=== PATIENT | male | born 1980 | race Caucasian/White ===

== ENCOUNTER 2018-02-09 09:37 | Observation (INO) | payer MEDICAID, SELFPAY ==
[2018-02-09] VITALS (17 sets, daily range): BP systolic 120–153; BP diastolic 70–111; PULSE 65–100; RESP 15–18; TEMP 36.4–36.9; O2SAT 95–100; BMI 34.0; BMI 33.3; BMI 34.1
--- NOTE | 2018-02-09 09:56 | EKG12_ITS ---
Test Reason : SOB Blood Pressure : / mmHG Vent. Rate : 089 BPM Atrial Rate : 089 BPM P-R Int : 162 ms QRS Dur : 104 ms QT Int : 362 ms P-R-T Axes : 065 068 052 degrees QTc Int : 440 ms Normal sinus rhythm Normal ECG Confirmed by TERESA FRANCIS ([id number]), editor department ESTIVEN SALGUERO ([id number]) on 02/13/2018 4:03:12 PM Referred By: JASPREET Confirmed By:TERESA FRANCIS
--- NOTE | 2018-02-09 09:56 | RAD_ITS ---
STUDY: X-RAY CHEST REASON FOR EXAM: Male, 38 years old. Chest pain x2 days. TECHNIQUE: PA and lateral views. COMPARISON: 07/05/2014. FINDINGS: ET tube and NG tube have been removed. The lungs are clear and expanded. There is no demonstrated pleural abnormality. Normal size heart. Normal mediastinum and saray. Normal visualized pulmonary arteries. Normal visualized aortic arch and descending thoracic aorta. Normal visualized thoracic spine. Normal visualized ribs, clavicles, and shoulders. There is no demonstrated abnormality of the visualized soft tissue structures of the upper abdomen. RAD/Chest PA and Lateral IMPRESSION: 1. Normal x-ray examination of the chest. 2. Interval removal of ET tube and NG tube when compared to 07/05/2014. Electronically Signed: Yogesh Martinez MD at 10:46 EDT , Service support ,
[2018-02-09] MEDS: Aspirin 81 MG TAB.CHEW 324 MG PO (10:15)
[2018-02-09] MEDS: LORazepam 2 MG/ML Syringe 1 MG IV (10:15)
[2018-02-09 10:17] LABS: Absolute Lymphocyte Count 2.57 X10^3/ul (0.83-4.51); Absolute Neutrophil Count 5.5 X10^3/uL (2.0-7.7); Basophil# 0.04 X10^3/uL; Basophil% 0.4 % (0-1); Eosinophil# 0.23 X10^3/uL; Eosinophils% 2.6 % (0-5); Lymphocyte # 2.57 X10^3/ul (4.0); Lymphocyte % 28.6 % (19-41); Mean Corp Hgb Conc 35.7 g/gl (32-36); Mean Corpuscular Hgb 29.8 pg (27.0-32.0); Mean Corpuscular Volume 83.5 fL (80-94); Mean Platelet Vol. 9.9 fl (6.2-12.0); Monocyte# 0.65 X10^3/uL; Monocyte% 7.2 % (0-10); Neutrophil % 61.1 % (47-70); Platelet Count 312 K/mm3 (150-450); RBC Distribution Width CV 12.4 % (11.6-14.6); RBC Distribution Width SD 37.2 fl (35.1-43.9); Red Blood Count 5.03 M/mm3 (4.6-6.2)
[2018-02-09 10:23] LABS: POSITIVE COUNT NO; POSITIVE DIFFERENTIAL NO; POSITIVE MORPHOLOGY NO
[2018-02-09 10:24] LABS: Prothrombin Time (Protime)PT. 12.8 SECONDS (11.7-14.9)
[2018-02-09 10:34] LABS: Anion Gap 5 (5-15); BUN 12 mg/dL (7-18); BUN/Creat Ratio 12.3 RATIO (10-20); Chloride 107 mmol/L (98-107); Creatinine, Serum 0.97 mg/dL (0.70-1.30); EST Glomerular Filtration Rate 91 mL/min (>60); Est Glom Filt Rate - Afr Amer 110 mL/min (>60); Estimated Creatinine Clearance 107.82 ml/min; Glucose 94 mg/dL (74-106); Potassium 3.9 mmol/L (3.5-5.1); Sodium Level 139 mmol/L (136-145)
--- NOTE | 2018-02-09 10:42 | CT_ITS ---
STUDY: CTA CHEST REASON FOR EXAM: Male, 38 years old. Productive cough/chest pressure. History of hypertension, GERD, DB and cholecystectomy. RADIATION DOSAGE (If Supplied By Facility): CTDIvol = ( 14.78 ) mGy, DLP = ( 631.62 ) mGycm TECHNIQUE: The examination was performed with the intravenous administration of 100 ml of Isovue 370 contrast material. Post-processing of the angiographic images was performed, with multiplanar reformation. MIP reconstruction was not performed. Individualized dose optimization techniques were used for this CT. COMPARISON: 07/02/2015. FINDINGS: Normal enhancement of the main pulmonary artery and right and left pulmonary arteries. Normal enhancement of the bilateral peripheral pulmonary arteries. There is no demonstrated pulmonary embolism. Mild dilatation of the ascending aorta with a diameter of 3.7 cm versus 2.6 cm for the descending thoracic aorta. There is no demonstrated aortic dissection. Normal heart and pericardium. Normal mediastinum. Normal hilar regions. Normal visualized trachea and bronchi. The lungs are well expanded. No suspicious pulmonary nodules or infiltrates. Breathing motion artifacts in the lung bases. Normal pleura. Normal chest wall structures. Normal osseous structures. Normal visualized upper abdomen. CT/CTA Chest W/WO Contrast IMPRESSION: 1. Normal CTA chest examination, without a demonstrated pulmonary embolism or arterial dissection. 2. No significant interval changes when compared to 07/02/2015. COMMENT: Fatty liver was mentioned previously but there were streak artifacts in the previous study. There may be mild hepatic steatosis but it is certainly subtle. Electronically Signed: Yogesh Martinez MD at 11:34 EDT , Service support ,
--- NOTE | 2018-02-09 11:53 | ED.VISSUMM ---
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 He complains of pain on the left side of his chest which radiates under his axilla and into his neck. He also complains of associated anxiety. His pain is rated as severe currently. It is also worsened with deep inspiration. He complains of a productive cough. He complains of nausea without vomiting. He complains of chronic epigastric abdominal pain for months related H pylori. He also complains of lower back pain on the left side which she described as pinching. He does report a history of hypertension and hyperlipidemia as well as a history of unprovoked upper extremity DVT and supraventricular tachycardia. He reports a family history of coronary disease and states that his father of a heart attack in his 40s. He does admit to marijuana use but does not smoke tobacco. Physical Examination: Heart rate 100 blood pressure 147/102 Moist mucous membranes Heart regular rhythm tachycardia He has scattered expiratory wheezing no respiratory distress Abdomen soft Extremities nontender without edema Alert Test Results: EKG shows sinus rhythm at a rate of 89 with no acute ischemic changes. Laboratory studies are normal with a negative troponin. Chest x-ray is normal. CTA is normal. Emergency Department Course and Treatment: Patient was given aspirin on arrival. He also requested something for anxiety and was given IV Ativan. He was given sublingual nitroglycerin and reported significant improvement after 2. Given history of DVT and pleuritic component of pain a CTA of the chest was also obtained to rule out PE. This was normal. However I do still think he needs ruled out for cardiac ischemia given family history radiation of pain into the axilla and neck with improvement with nitroglycerin. I do feel he requires repeat enzymes and likely stress testing. He will be discussed with hospitalist and admitted. His CONSTANTINO score is 1 his heart score is 3. Treatment Plan: [] Disposition: Admit Impression: Chest pain Shortness of breath This note was generated with [employer] dictation software. It may contain incorrect words, spelling, and punctuation that were not noted in review of the chart prior to signing ED Disposition - Plan for ED Patient: Chief Complaint: Cough Referrals: Julita Wilhelm MD [Primary Care Provider] -
--- NOTE | 2018-02-09 11:56 | ED.DCSUM_ITS ---
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 He complains of pain on the left side of his chest which radiates under his axilla and into his neck. He also complains of associated anxiety. His pain is rated as severe currently. It is also worsened with deep inspiration. He complains of a productive cough. He complains of nausea without vomiting. He complains of chronic epigastric abdominal pain for months related H pylori. He also complains of lower back pain on the left side which she described as pinching. He does report a history of hypertension and hyperlipidemia as well as a history of unprovoked upper extremity DVT and supraventricular tachycardia. He reports a family history of coronary disease and states that his father of a heart attack in his 40s. He does admit to marijuana use but does not smoke tobacco. Physical Examination: Heart rate 100 blood pressure 147/102 Moist mucous membranes Heart regular rhythm tachycardia He has scattered expiratory wheezing no respiratory distress Abdomen soft Extremities nontender without edema Alert Test Results: EKG shows sinus rhythm at a rate of 89 with no acute ischemic changes. Laboratory studies are normal with a negative troponin. Chest x-ray is normal. CTA is normal. Emergency Department Course and Treatment: Patient was given aspirin on arrival. He also requested something for anxiety and was given IV Ativan. He was given sublingual nitroglycerin and reported significant improvement after 2. Given history of DVT and pleuritic component of pain a CTA of the chest was also obtained to rule out PE. This was normal. However I do still think he needs ruled out for cardiac ischemia given family history radiation of pain into the axilla and neck with improvement with nitroglycerin. I do feel he requires repeat enzymes and likely stress testing. He will be discussed with hospitalist and admitted. His CONSTANTINO score is 1 his heart score is 3. Treatment Plan: [] Disposition: Admit Impression: Chest pain Shortness of breath This note was generated with [employer] dictation software. It may contain incorrect words, spelling, and punctuation that were not noted in review of the chart prior to signing ED Disposition - Plan for ED Patient: Chief Complaint: Cough Referrals: Julita Wilhelm MD [Primary Care Provider] -
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
[2018-02-09 13:27] LABS: Amphetamine Urine VISTA NEGATIVE (<1000 ng/mL); Barbiturate Urine VISTA NEGATIVE (< 200 ng/mL); Benzodiazepine Urine VISTA NEGATIVE (< 200 ng/mL); Cocaine Urine VISTA NEGATIVE (< 300 ng/mL); Ecstacy Urine VISTA NEGATIVE (< 500 ng/mL); Methadone Urine VISTA NEGATIVE (< 300 ng/mL); PCP Urine VISTA NEGATIVE (< 25 ng/mL); THC Urine VISTA POSITIVE (< 50 ng/mL); Vista UDS pH Range 7
[2018-02-09 13:30] LABS: AST(SGOT) 22 U/L (15-37); Alanine Aminotransfer ALT/SGPT 39 U/L (16-61); Albumin, Serum 4.3 g/dL (3.2-5.0); Alkaline Phosphatase 72 U/L (45-117); Bilirubin, Direct 0.08 mg/dL (0.00-0.30); Globulin 3.2 g/dL (2.2-4.2); Lipase 182 U/L (73-393); Magnesium 2.1 mg/dL (1.6-2.6); Phosphorus 2.3 mg/dL (2.5-4.9); Protein, Total 7.5 g/dL (6.4-8.2)
[2018-02-09] MEDS: Lisinopril 5 MG Tablet PO (14:40)
[2018-02-09] MEDS: Acetaminophen 325 MG Tablet 650 MG PO (14:40)
--- NOTE | 2018-02-09 16:06 | RAD_ITS ---
STUDY: X-RAY - RIGHT HAND REASON FOR EXAM: Male, 38 years old. Fifth finger injury TECHNIQUE: 3 view(s) of the hand. COMPARISON: None. FINDINGS: Normal radiocarpal articulation. There is an old nonunited ulnar styloid process fracture. Normal visualized carpal bones. Normal carpal articulations Normal carpometacarpal articulation of the thumb. Normal second through fifth carpometacarpal joints. Normal metacarpi. Normal metacarpophalangeal joint of the thumb. Normal interphalangeal joint of the thumb. Normal proximal and distal phalanges of the thumb. Normal metacarpophalangeal joints of the second through fifth fingers. Normal proximal and distal interphalangeal joints of the second through fifth fingers. Normal phalanges of the second through fifth fingers. There is soft tissue swelling of the fifth PIP joint region. There is a tiny radiopacity adjacent to the base of the fifth middle phalanx which may represent cortical chip fracture or tiny radiopaque foreign body. RAD/Hand Min 3 Views IMPRESSION: Soft tissue swelling of the fifth PIP joint. Tiny radiopacity adjacent to the base of the fifth middle phalanx which may represent a tiny cortical chip fracture or radiopaque foreign body. There is an old nonunited ulnar styloid process fracture. Electronically Signed: Cuauhtemoc Mast MD at 17:19 EDT , Service support ,
--- NOTE | 2018-02-09 16:25 | CHAPLAIN ---
Type of Pastoral Visit _x__ Initial Visit ___ Follow-up Visit ___ On-call Visit ___ General Patient Visit ___ Spiritual Assessment ___ Family Conference ___ Bereavement ___ Rapid Response ___ Code Blue ___ Other (describe below) Pastoral Care Referral From _x__ Patient ___ Family ___ Nurse ___ Physician ___ Pipe Wrapping Machine Operator ___ Pourer Metal ___ Other (describe below) Sacrament/Intervention _x__ Active listening ___ Anointing ___ Taoist ___ Bereavement ___ Communion _x__ Vivienne exploration ___ _x__ Life review _x__ Prayer ___ Reconciliation ___ Sacrament of Sick _x__ Supportive presence ___ Wedding ___ Other (describe below) Pastoral Comments 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
[2018-02-09] MEDS: Gemfibrozil 600 MG Tablet PO (18:24)
[2018-02-09] MEDS: Thiamine Hydrochloride 100 MG Tablet PO (18:24)
[2018-02-09] MEDS: Ipratropium/Albuterol Sulfate 3 ML AMPUL.NEB INHALATION (18:47)
[2018-02-09] MEDS: Morphine 2 MG/ML Syringe IV (20:15)
--- NOTE | 2018-02-09 20:25 | EKG12_ITS ---
Test Reason : CP Blood Pressure : / mmHG Vent. Rate : 065 BPM Atrial Rate : 065 BPM P-R Int : 180 ms QRS Dur : 108 ms QT Int : 398 ms P-R-T Axes : 064 067 055 degrees QTc Int : 413 ms Normal sinus rhythm Septal infarct , age undetermined Abnormal ECG When compared with ECG of 09-FEB-2018 12:58, MANUAL COMPARISON REQUIRED, DATA IS UNCONFIRMED Confirmed by JOSE ALFREDO AHN, SABIHA ([id number]), associate editor ESTIVEN SALGUERO ([id number]) on 02/16/2018 3:49:27 PM Referred By: PALOMA Confirmed By:SABIHA VELIZ MD
[2018-02-09] MEDS: traZODone 50 MG Tablet PO (21:38)
[2018-02-09] MEDS: Famotidine 20 MG Tablet PO (21:38)
[2018-02-09] MEDS: HYDROcodone Bitartrate/Apap 5/325 Tablet PO (21:38)
[2018-02-09] MEDS: Na Biphos/Potassium Phosphate PACKET 1 PACKET PO (21:38)
[2018-02-09] MEDS: 0.9% Normal Saline 1,000 ML 100 ML IV (23:05)
--- NOTE | 2018-02-09 23:25 | CPS ---
pt says he'll sleep without CPAP tonight and use oxygen instead. He will have someone from bring him his home unit for tomorrow night.
[2018-02-10 02:57] VITALS: PULSE 59
[2018-02-10 03:18] VITALS: BP 129/69; PULSE 57; RESP 14; TEMP 36.4; O2SAT 100
--- NOTE | 2018-02-10 05:55 | EKG12_ITS ---
Test Reason : AM EKG Blood Pressure : / mmHG Vent. Rate : 056 BPM Atrial Rate : 056 BPM P-R Int : 146 ms QRS Dur : 104 ms QT Int : 422 ms P-R-T Axes : 023 075 060 degrees QTc Int : 407 ms Sinus bradycardia with sinus arrhythmia Otherwise normal ECG When compared with ECG of 09-FEB-2018 20:24, MANUAL COMPARISON REQUIRED, DATA IS UNCONFIRMED Confirmed by JOSE ALFREDO AHN, SABIHA ([id number]), fashion editor ESTIVEN SALGUERO ([id number]) on 02/16/2018 3:48:37 PM Referred By: PALOMA Confirmed By:SABIHA VELIZ MD
--- NOTE | 2018-02-10 05:55 | STEWCON_ITS ---
Stress Results Maximum Predicted HR: 180 bpm Target HR: 153 bpm % Maximum Predicted HR: 86 % DurationHeart Rate Stage (mm:ss) (bpm) BP I 3:00 11 0 170/72 II 6:00 13 1 186/82 III 9:00 15 3 192/80 IV 0:27 15 5 / RECOVERY 2:20 10 3 180/76 RECOVERY 6:40 93 126/80 Stress Duration: 27:27 mm:ss Maximum Stress HR: 155 bpm Baseline Echocardiogram Findings The estimated ejection fraction is 65 %. Stress Echo Wall motion Data Resting WMIntermediate WMStress WM Resting Wall Motion Wall Motion Stress No regional wall motion No regional wall motion abnormalities noted. abnormalities noted. EKG Data The baseline ECG demonstrates normal sinus rhythm with at rate of _ beats per minute. The patient exercised according to the regular Harsh protocol for a total duration of 9:26. The maximum heart rate attained was 166 beats per minute. This was 92% of maximum predicted heart rate. The patient exercised into stage 4 of the Harsh protocol. During stress, there were no ST or T wave changes noted to suggest ischemia. No arrhythmias noted. Interpretation Summary The study was technically difficult. Contrast injection was performed. The estimated ejection fraction is 65 %. Normal adequate treadmill echocardiogram. Negative for ischemia by EKG and echocardiographic criteria. Patient had baseline atypical sharp chest pain prior to testing, which did not worsen during testing. No associated EKG changes or echocardiographic changes with exercise. Average exercise capacity for age. Appropriate blood pressure response to exercise. Test terminated due to fatigue. Decreased sensitivity due to poor echo windows requiring Definity enhancement. Final LVEF of 75%. No complications. Ordering Physician: Yu López
[2018-02-10 05:59] VITALS: BP 143/80; PULSE 70; RESP 16; TEMP 36.4; O2SAT 96
[2018-02-10] MEDS: Na Biphos/Potassium Phosphate PACKET 1 PACKET PO (06:02)
[2018-02-10] MEDS: Acetaminophen 325 MG Tablet 650 MG PO (06:04)
[2018-02-10] MEDS: Aspirin 81 MG TAB.CHEW PO (06:04)
[2018-02-10] MEDS: LORazepam 1 MG Tablet 2 MG PO (06:04)
[2018-02-10] MEDS: Lisinopril 20 MG Tablet PO (06:07)
[2018-02-10 06:41] LABS: Hematocrit 42.4 % (40-54); Hemoglobin 14.6 g/dl (13.0-16.5); Mean Corp Hgb Conc 34.4 g/gl (32-36); Mean Corpuscular Hgb 29.4 pg (27.0-32.0); Mean Corpuscular Volume 85.3 fL (80-94); Mean Platelet Vol. 10.4 fl (6.2-12.0); Platelet Count 288 K/mm3 (150-450); RBC Distribution Width CV 12.6 % (11.6-14.6); RBC Distribution Width SD 38.6 fl (35.1-43.9); Red Blood Count 4.97 M/mm3 (4.6-6.2); White Blood Count 8.7 K/mm3 (4.4-11.0)
[2018-02-10 06:42] LABS: Scan Indicated on CBC? Y/N NO
[2018-02-10 06:44] LABS: Partial Thromboplast Time 30.3 Seconds (24.1-36.2); Prothrombin Time (Protime)PT. 13.3 SECONDS (11.7-14.9)
[2018-02-10 06:50] LABS: Anion Gap 9 (5-15); BUN 16 mg/dL (7-18); BUN/Creat Ratio 18.9 RATIO (10-20); Calcium,Total 8.3 mg/dL (8.5-10.1); Chloride 110 mmol/L (98-107); Cholesterol 187 mg/dL (200); Creatinine, Serum 0.84 mg/dL (0.70-1.30); EST Glomerular Filtration Rate 107 mL/min (>60); Est Glom Filt Rate - Afr Amer 129 mL/min (>60); Glucose 115 mg/dL (74-106); High Density Lipoprotein 30 mg/dL; Potassium 4.2 mmol/L (3.5-5.1); Sodium Level 142 mmol/L (136-145); Triglycerides 384 mg/dL; Very Low Density Lipoprotein 77 mg/dL (5-40)
[2018-02-10] MEDS: Gemfibrozil 600 MG Tablet PO (06:52)
[2018-02-10 07:00] VITALS: PULSE 62
[2018-02-10] MEDS: 0.9% Normal Saline 1,000 ML 100 ML IV (07:21)
--- NOTE | 2018-02-10 09:27 | CASEMGMT ---
Social Work Note SW in to see pt for emotional support. Pt unavailable to talk at present time. List of counseling services in [place] left in room and SW to return as time allows. Ashley Mcnamara, HEAD TELLER, ASSESSMENT CONSULTANT
[2018-02-10 09:30] VITALS: BP 151/90; PULSE 74; RESP 16; TEMP 36.6; O2SAT 98
[2018-02-10] MEDS: Thiamine Hydrochloride 100 MG Tablet PO (09:33)
[2018-02-10] MEDS: Sertraline 50 MG Tablet PO (09:33)
--- NOTE | 2018-02-10 09:34 | PCM.DC ---
- Discharge Diagnoses Current Active Problems: Current Active and Chronic Problems (1) Chest Pain, Non-Cardiac, Musculoskeletal (2) RUE Trauma (3) Recent Cough, Wheezing, ? Viral Syndrome versus underlying pulmonary disease (tobacco use prior) (4) History of Unprovoked RUE DVT and Hx Superficial VT with family history VTE also, unprovoked (5) Hypertension (6) Hyperlipidemia (7) Obesity (8) History of EtOH Abuse (9) Anxiety, Depression, PTSD and Insomnia, Untreated (10) GUSTAVO You will use the following diet at home:: Cardiac Your food should be the consistency of: Regular Your liquids should be the consistency of: Regular/Thin Discharge Activity: May not drive while taking narcotic pain medications., - - Avoid activity that strains the chest and LUE further until re-evaluation per your primary care physician and avoidance of aggressive R hand usage until re-evaluation per Orthopedic surgery. May resume sexual activity in: 10-14 days Weight Bearing Status: Weight bearing as tolerated Call your doctor if you observe: Fever of 101 or Higher, Inability to urinate, Inability to have a bowel movement, Shortness of breath, Dizziness, Fainting spells, Chest pain, Uncontrolled pain Instructions: ED Strain Chest Wall, ED Chest Pain NonCardiac, Taking BRANDON Inhibitors, Controlling High Blood Pressure, Low-Salt Choices, Eating Heart-Healthy Food: Using the DASH Plan Additional Instructions: The chest pain you experienced is not from your heart. The van driver helper you wore showed no problem with the rhythm of your heart. Additionally, the cardiac enzyme series performed remained normal. Also, your pain was reproducible on examination. Sometimes chest pain can come from a problem with the muscles or skeleton and/or associated with straining or doing some strenuous activity you do not normally perform. Generally Aleve or Motrin will help allieviate this discomfort if these medications are appropriate for you to take. Chest pain can also be associated with anxiety and with this you frequently have racing heart, trouble sleeping and irritability. It can also come from gastroesophageal reflux disease or heartburn. People who smoke experience increased heartburn because nicotine decreases the pressure in the lower esophageal sphincter and causes reflux. Please continue the mobic regimen, taking it with food and taking the famotidine while on the regimen until re-evaluation per Primary Care physician and Orthopedic surgery with alterations per their discretion. You may need outpatient physical therapy depending on your improvement. Allergies/Adverse Reactions: Allergies latex Allergy (Verified 02/09/18 09:39) Other meloxicam Allergy (Verified 02/09/18 09:39) Other Medications to take at Discharge Aspirin [Aspirin, Baby] 81 mg PO DAILY@0800 02/09/18 Albuterol IH (ProAir) [Proair Hfa] 1 - 2 puff INHALATION Q4H PRN PRN #1 inhaler 02/10/18 Famotidine [Pepcid] 20 mg PO BID #60 tab 02/10/18 Gemfibrozil [Lopid] 600 mg PO BIDAC #60 tab 02/10/18 Hydrocodone Bitart/Apap 5-325 [[place] 5/325] 1 - 2 tab PO Q6H PRN PRN 2 Days #20 tab 02/10/18 Lisinopril [Zestril] 20 mg PO DAILY #30 tab 02/10/18 Meloxicam [Mobic] 15 mg PO DAILY #14 tab 02/10/18 Multivitamins,Ther W-Minerals [Multivitamin With Minerals] 1 tab PO DAILYCM #30 tab 02/10/18 Sertraline HCl [Zoloft] 50 mg PO DAILY #30 tab 02/10/18 traZODone [Desyrel] 50 - 100 mg PO QHS #60 tab 02/10/18 The following prescriptions were given: Albuterol IH (ProAir) [Proair Hfa] 1 - 2 puff INHALATION Q4H PRN PRN #1 inhaler PRN Reason: dyspnea, wheezing Hydrocodone Bitart/Apap 5-325 [[place] 5/325] 1 - 2 tab PO Q6H PRN PRN 2 Days #20 tab PRN Reason: Moderate-severe pain Gemfibrozil [Lopid] 600 mg PO BIDAC #60 tab Lisinopril [Zestril] 20 mg PO DAILY #30 tab Meloxicam [Mobic] 15 mg PO DAILY #14 tab Multivitamins,Ther W-Minerals [Multivitamin With Minerals] 1 tab PO DAILYCM #30 tab Sertraline HCl [Zoloft] 50 mg PO DAILY #30 tab traZODone [Desyrel] 50 - 100 mg PO QHS #60 tab Famotidine [Pepcid] 20 mg PO BID #60 tab Primary Care Physician: Julita Wilhelm MD [Primary Care Provider] - Please follow up with your Primary Care Physician in: Follow-up within 3-5 days to review admit. Please Follow Up With: Chavez Lyn DO When: Follow-up to evaluate R hand, s/p trauma. Proposed Discharge Date: 02/10/18
[2018-02-10] MEDS: Famotidine 20 MG Tablet PO (09:38)
[2018-02-10] MEDS: Folic Acid 1 MG Tablet PO (09:38)
[2018-02-10] MEDS: Multivitamins,Ther W-Minerals Tablet 1 TABLET PO (09:38)
[2018-02-10] MEDS: Ketorolac 30 MG/ML Syringe IV (09:38)
--- NOTE | 2018-02-10 09:42 | DCINST_ITS ---
- Discharge Diagnoses Current Active Problems: Current Active and Chronic Problems (1) Chest Pain, Non-Cardiac, Musculoskeletal (2) RUE Trauma (3) Recent Cough, Wheezing, ? Viral Syndrome versus underlying pulmonary disease (tobacco use prior) (4) History of Unprovoked RUE DVT and Hx Superficial VT with family history VTE also, unprovoked (5) Hypertension (6) Hyperlipidemia (7) Obesity (8) History of EtOH Abuse (9) Anxiety, Depression, PTSD and Insomnia, Untreated (10) GUSTAVO You will use the following diet at home:: Cardiac Your food should be the consistency of: Regular Your liquids should be the consistency of: Regular/Thin Discharge Activity: May not drive while taking narcotic pain medications., - - Avoid activity that strains the chest and LUE further until re-evaluation per your primary care physician and avoidance of aggressive R hand usage until re- evaluation per Orthopedic surgery. May resume sexual activity in: 10-14 days Weight Bearing Status: Weight bearing as tolerated Call your doctor if you observe: Fever of 101 or Higher, Inability to urinate, Inability to have a bowel movement, Shortness of breath, Dizziness, Fainting spells, Chest pain, Uncontrolled pain Instructions: ED Strain Chest Wall, ED Chest Pain NonCardiac, Taking BRANDON Inhibitors, Controlling High Blood Pressure, Low-Salt Choices, Eating Heart- Healthy Food: Using the DASH Plan Additional Instructions: The chest pain you experienced is not from your heart. The rn cardiac you wore showed no problem with the rhythm of your heart. Additionally, the cardiac enzyme series performed remained normal. Also, your pain was reproducible on examination. Sometimes chest pain can come from a problem with the muscles or skeleton and/or associated with straining or doing some strenuous activity you do not normally perform. Generally Aleve or Motrin will help allieviate this discomfort if these medications are appropriate for you to take. Chest pain can also be associated with anxiety and with this you frequently have racing heart, trouble sleeping and irritability. It can also come from gastroesophageal reflux disease or heartburn. People who smoke experience increased heartburn because nicotine decreases the pressure in the lower esophageal sphincter and causes reflux. Please continue the mobic regimen , taking it with food and taking the famotidine while on the regimen until re- evaluation per Primary Care physician and Orthopedic surgery with alterations per their discretion. You may need outpatient physical therapy depending on your improvement. Allergies/Adverse Reactions: Allergies latex Allergy (Verified 02/09/18 09:39) Other meloxicam Allergy (Verified 02/09/18 09:39) Other Medications to take at Discharge Aspirin [Aspirin, Baby] 81 mg PO DAILY@0800 02/09/18 Albuterol IH (ProAir) [Proair Hfa] 1 - 2 puff INHALATION Q4H PRN PRN #1 inhaler 02/10/18 Famotidine [Pepcid] 20 mg PO BID #60 tab 02/10/18 Gemfibrozil [Lopid] 600 mg PO BIDAC #60 tab 02/10/18 Hydrocodone Bitart/Apap 5-325 [[place] 5/325] 1 - 2 tab PO Q6H PRN PRN 2 Days #20 tab 02/10/18 Lisinopril [Zestril] 20 mg PO DAILY #30 tab 02/10/18 Meloxicam [Mobic] 15 mg PO DAILY #14 tab 02/10/18 Multivitamins,Ther W-Minerals [Multivitamin With Minerals] 1 tab PO DAILYCM #30 tab 02/10/18 Sertraline HCl [Zoloft] 50 mg PO DAILY #30 tab 02/10/18 traZODone [Desyrel] 50 - 100 mg PO QHS #60 tab 02/10/18 The following prescriptions were given: Albuterol IH (ProAir) [Proair Hfa] 1 - 2 puff INHALATION Q4H PRN PRN #1 inhaler PRN Reason: dyspnea, wheezing Hydrocodone Bitart/Apap 5-325 [[place] 5/325] 1 - 2 tab PO Q6H PRN PRN 2 Days #20 tab PRN Reason: Moderate-severe pain Gemfibrozil [Lopid] 600 mg PO BIDAC #60 tab Lisinopril [Zestril] 20 mg PO DAILY #30 tab Meloxicam [Mobic] 15 mg PO DAILY #14 tab Multivitamins,Ther W-Minerals [Multivitamin With Minerals] 1 tab PO DAILYCM #30 tab Sertraline HCl [Zoloft] 50 mg PO DAILY #30 tab traZODone [Desyrel] 50 - 100 mg PO QHS #60 tab Famotidine [Pepcid] 20 mg PO BID #60 tab Primary Care Physician: Julita Wilhelm MD [Primary Care Provider] - Please follow up with your Primary Care Physician in: Follow-up within 3-5 days to review admit. Please Follow Up With: Chavez Lyn DO When: Follow-up to evaluate R hand, s/p trauma. Proposed Discharge Date: 02/10/18
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
[2018-02-10 11:00] VITALS: PULSE 69; PULSE 82
--- NOTE | 2018-02-10 11:14 | ECHOCS_ITS ---
Reason For Study: Chest Pain Procedure This was a 2D Doppler, Color Flow transthoracic echocardiogram. Exam performed in department. Left Ventricle Normal size and thickness. The estimated ejection fraction is 65 %. Normal diastology for age. Right Ventricle Normal size and thickness. Normal systolic function. Atria Normal left atrium. Normal right atrium. Normal atrial septum. Mitral Valve The mitral valve is structurally normal. No prolapse or stenosis seen. Tricuspid Valve Normal tricuspid valve. Unable to estimate RV systolic pressure/pulmonary artery pressure due to technically difficult study. Aortic Valve Normal aortic valve. Trisinus/trileaflet aortic valve. Pulmonic Valve Normal pulmonic valve. Trivial eccentric pulmonic valve insufficiency. Great Vessels Normal aortic root. Normal arch. Normal inferior vena cava. Inferior vena cava collapse with sniff. Pericardium/Pleural No pericardial effusion. MMode/2D Measurements & Calculations LVIDd: 5.1 cm IVSd: 1.1 cm Ao root diam: 3.3 cm LVIDs: 3.4 cm LVPWd: 1.0 cm LA dimension: 3.2 cm RVDd: 4.0 cm FS: 32.6 % LAV(MOD-bp): 33.8 ml LA A4 area: 10.5 cm2 RA A4 area: 12.1 cm2 LAV(MOD-bp) Indexed: 14.9 ml/m2 LAV(MOD-sp2): 43.4 ml LAV(MOD-sp4): 21.7 ml Doppler Measurements & Calculations MV E max momo: 84.4 cm/sec Lat Peak E' Momo: 15.5 cm/sec Med Peak E' Momo: 10.4 cm/sec MV A max momo: 45.1 cm/sec E/E' lat: 5.4 E/E' med: 8.1 MV E/A: 1.9 Ao V2 max: 127.5 cm/sec LV V1 max: 124.6 cm/sec PA V2 max: 85.7 cm/sec Ao max P.5 mmHg LV V1 max P.2 mmHg Ao V2 mean: 86.4 cm/sec Ao mean P.4 mmHg Ao V2 VTI: 26.4 cm Interpretation Summary The estimated ejection fraction is 65 %. Normal diastology for age. Unable to estimate RV systolic pressure/pulmonary artery pressure due to technically difficult study. There is no comparison study available. This was essentially a normal study. Ordering Physician: Jeramie Ruelas Referring Physician: Julita Wilhelm Performed By: Radha Love, HUNTER, RVT
[2018-02-12 14:15] LABS: Dilute Russell Viper Venom 44.6 sec (0.0-47.0)
[2018-02-15 14:08] LABS: Protein C Antigen 95 % (60-150); Protein C, Functional 116 % (73-180)
[2018-02-16 12:16] LABS: Anti-Cardiolipin Ab, IgG, Qn < 9 GPL U/mL (0-14); Anti-Cardiolipin Ab, IgM, Qn < 9 MPL U/mL (0-12); Anti-Thrombin 3 AG, Immunol 102 % (72-124); Antithrombin 3 Function 107 % (75-135); Beta-2-Glycoprotein I IgA <9 (0-25); Beta-2-Glycoprotein I IgG <9 (0-20); Beta-2-Glycoprotein I IgM <9 (0-32)
== END 2018-02-10 09:40 | disposition home or self-care (01) ==
LOC: ED 10:21 → PCU 12:35
PROVIDERS: Admitting Provider Family Medicine; Emergency Provider Emergency Medicine; Family Provider Internal Medicine; PCP Internal Medicine; Visit Provider Family Medicine
DX: R07.89 Other chest pain (principal); G47.33 Obstructive sleep apnea (adult) (pediatric); E78.5 Hyperlipidemia, unspecified; I10 Essential (primary) hypertension; Z86.718 Personal history of other venous thrombosis and embolism; K21.9 Gastro-esophageal reflux disease without esophagitis; E66.9 Obesity, unspecified; Z68.33 Body mass index [BMI] 33.0-33.9, adult; Z71.3 Dietary counseling and surveillance; Z79.82 Long term (current) use of aspirin; F17.220 Nicotine dependence, chewing tobacco, uncomplicated; S69.91XD Unspecified injury of right wrist, hand and finger(s), subsequent encounter; X58.XXXD Exposure to other specified factors, subsequent encounter
CPT/HCPCS: 36415; 71046; 71275; 73130; 80048; 80061; 80076; 80307; 80320; 81240; 81241; 83690; 83735; 84100; 84484; 85025; 85027; 85300; 85301; 85302; 85303; 85610; 85613; 85730; 86146; 86147; 87633; 93005; 93017; 93306; 93350; 94640; 96361; 96374; 96375; 96376; 97802; 99218; 99283; J7030; Q9957; Q9967; A4216; C8928; G0378; G0480

== ENCOUNTER 2018-04-14 17:37 | Emergency (ER) | payer SELFPAY ==
[2018-04-14 17:38] VITALS: BP 142/83; PULSE 80; RESP 18; TEMP 36.7; O2SAT 99; BMI 29.0
--- NOTE | 2018-04-14 18:21 | RAD_ITS ---
STUDY: X-RAY - RIGHT FOOT CLINICAL: Male, 38 years old. Right-sided lateral foot pain after recent trauma. TECHNIQUE: 3 view(s) of the foot. COMPARISON: None. FINDINGS: Normal talus, calcaneus, and tarsal bones. Intertarsal articulations are within normal limits. There appears to be a stress fracture of the proximal fifth metatarsal. The metatarsals otherwise are within normal limits. Normal metatarsophalangeal joint of the great toe. Normal tibial and fibular sesamoid bones. Normal interphalangeal joint of the great toe. Normal phalanges of the great toe. Normal second through fifth metatarsophalangeal joints. Normal interphalangeal joints and phalanges of the lesser toes. Soft tissue swelling of the lateral foot. RAD/Foot min 3 Views IMPRESSION: Stress fracture of the proximal fifth metatarsal. Electronically Signed: Elissa Govea MD at 19:36 EDT , Service support ,
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
--- NOTE | 2018-04-14 20:08 | ED.DEP ---
ED Disposition - Plan for ED Patient: Chief Complaint: Lower Extremity Injury Instructions: ED Fx Foot Prescriptions: Hydrocodone/Acetaminophen [[place] 5-325 Tablet] 1 - 2 ea PO 4X/DAY PRN PRN 5 Days #20 tab PRN Reason: Pain Referrals: Yousuf Gillespie MD [Primary Care Provider] - Madeline Weiss DPM [STAFF PHYSICIAN] -
[2018-04-14 20:24] VITALS: RESP 18
== END 2018-04-14 20:24 | disposition home or self-care (01) ==
LOC: ED 19:30
PROVIDERS: Emergency Provider Emergency Medicine; Family Provider Family Medicine; PCP Family Medicine
DX: M84.374A Stress fracture, right foot, initial encounter for fracture (principal); W22.09XA Striking against other stationary object, initial encounter; Y93.9 Activity, unspecified; Y92.9 Unspecified place or not applicable; F12.90 Cannabis use, unspecified, uncomplicated
CPT/HCPCS: 29515; 73630; 99283

== ENCOUNTER 2018-04-17 14:08 | Emergency (ER) | payer MEDICAID, SELFPAY ==
[2018-04-17 14:08] VITALS: BP 129/79; PULSE 72; RESP 18; TEMP 36.9; O2SAT 99; BMI 29.5
--- NOTE | 2018-04-17 14:33 | VDLE_ITS ---
Reason For Study: LEG PAIN RIGHT GSV is normal. CFV is compressible, spontaneous, phasic, competent and demonstrates normal augmentation. FV is compressible, spontaneous, phasic, competent and demonstrates normal augmentation. POP V is compressible, spontaneous, phasic, competent and demonstrates normal augmentation. T/P Trunk is compressible. PTV is compressible. RT PerV is compressible. Procedure Exam performed in department. A preliminary report was called and/or faxed to Dr. Orantes. Interpretation Summary There is no evidence of right lower extremity deep vein thrombosis. Right greater saphenous vein appears patent and compressible segmentally. Ordering Physician: Pieter Orantes Referring Physician: MD Verna Yousuf Performed By: Carla Ernst RVT
--- NOTE | 2018-04-17 15:41 | ED.VISSUMM ---
- ER Visit Summary Date of Service: 04/17/18 Chief Complaint: Right calf pain History of Present Illness: The patient is a [address] Gillespie. He states that he broke his right foot approximately 10 days ago. He was scheduled to see Dr. Infante in follow-up. However, he began having right calf pain and has a history of DVT. He was sent to the emergency department for evaluation. Patient reports that he has a sharp, burning pain is 1010 at worst 1-10 currently. Is worsened by nothing relieved by nothing. He denies any paresthesias. Physical Examination: Vitals: Stable. Afebrile. General: Well-nourished and well-developed. Head: Normocephalic atraumatic. Neck: Supple, no lymphadenopathy. No JVD. Nontender. Cardiovascular: Regular rate and rhythm. No murmurs. Respiratory: No respiratory distress. Clear to auscultation bilaterally. Abdominal: Soft, nontender, nondistended, normal bowel sounds. No guarding, rebound, or peritoneal signs. Back: Nontender. Extremities: Moderate tenderness palpation over the lateral surface of his right foot. Minimal soft tissue swelling. No contusion. He has a 2+ dorsalis pedis pulse. He has mild tenderness palpation over his right calf. There is no edema. Skin: Normal color, no rash. Neurologic: Alert and oriented ?3. Cranial nerves II through XII are intact. Normal strength and sensation. Psych: Normal affect. Test Results: Right lower extreme a Doppler was negative. Emergency Department Course and Treatment: Patient is resting comfortably. Treatment Plan: Patient was discussed with Dr. Mast. He will be discharged instructions to follow-up Dr. Weiss on as previously scheduled. Return to the emergency department for any worsening symptoms. Disposition: To home in improved and stable condition. Impression: 1. Right fifth metatarsal fracture. 2. Right calf pain. This note was generated with Gimah[employer] dictation software. It may contain incorrect words, spelling, and punctuation that were not noted in review of the chart prior to signing ED Disposition - Plan for ED Patient: Chief Complaint: Lower Extremity Injury Instructions: ED Fx Foot Referrals: Madeline Weiss DPM [STAFF PHYSICIAN] - Keep Jay appointment
== END 2018-04-17 15:50 | disposition home or self-care (01) ==
PROVIDERS: Emergency Provider Emergency Medicine; Family Provider Family Medicine; PCP Family Medicine
DX: M79.661 Pain in right lower leg (principal); S92.351A Displaced fracture of fifth metatarsal bone, right foot, initial encounter for closed fracture; X58.XXXA Exposure to other specified factors, initial encounter; J45.909 Unspecified asthma, uncomplicated; Z86.718 Personal history of other venous thrombosis and embolism; Z79.82 Long term (current) use of aspirin
CPT/HCPCS: 93971; 99282

== ENCOUNTER → 2018-04-19 16:20 | Outpatient (CLI) | payer MEDICAID, SELFPAY | PROVIDERS: Family Provider Family Medicine; PCP Family Medicine; Visit Provider Podiatrist | DX: S92.353A Displaced fracture of fifth metatarsal bone, unspecified foot, initial encounter for closed fracture (principal); E55.9 Vitamin D deficiency, unspecified | CPT/HCPCS: 36415; 82306 ==

== ENCOUNTER 2018-04-26 21:51 | Emergency (ER) | payer MEDICAID, SELFPAY ==
[2018-04-26 21:52] VITALS: BP 152/97; PULSE 98; RESP 18; TEMP 35.9; O2SAT 97; BMI 29.5
--- NOTE | 2018-04-26 21:58 | ED.RN ---
DIRECTOR EMPLOYEE COMMUNICATIONS CALLED FOR EKG, PULLED OLD EKG'S FOR
--- NOTE | 2018-04-26 22:16 | EKG12_ITS ---
Test Reason : CHEST PAIN Blood Pressure : / mmHG Vent. Rate : 077 BPM Atrial Rate : 077 BPM P-R Int : 186 ms QRS Dur : 104 ms QT Int : 368 ms P-R-T Axes : 054 065 048 degrees QTc Int : 416 ms Normal sinus rhythm Normal ECG Confirmed by JOSE ALFREDO AHN, SABIHA ([id number]), editor news ESTIVEN SALGUERO ([id number]) on 05/01/2018 2:15:07 PM Referred By: Madeline Weiss Confirmed By:SABIHA VELIZ MD
[2018-04-26 22:20] VITALS: BP 142/93; PULSE 94; RESP 15; O2SAT 94
--- NOTE | 2018-04-26 22:20 | RAD_ITS ---
STUDY: X-RAY CHEST REASON FOR EXAM: Male, 38 years old. Chest pain. TECHNIQUE: Single AP portable view of the chest. COMPARISON: Prior comparison studies are not available for review at this time. FINDINGS: The lungs are clear and expanded. There is no demonstrated pleural abnormality. Normal size heart. Normal mediastinum and saray. Normal visualized pulmonary arteries. Normal visualized aortic arch and descending thoracic aorta. Normal visualized thoracic spine. Normal visualized ribs, clavicles, and shoulders. There is no demonstrated abnormality of the visualized soft tissue structures of the upper abdomen. RAD/Chest 1 View (Portable) IMPRESSION: No active pulmonary disease. Electronically Signed: Jason Hurtado MD at 22:40 EDT Tel , Service support ,
[2018-04-26] MEDS: Aspirin 81 MG TAB.CHEW 324 MG PO (22:34)
[2018-04-26] MEDS: 0.9% Normal Saline 1,000 ML 150 ML IV (22:35)
[2018-04-26 22:41] LABS: Absolute Lymphocyte Count 3.17 X10^3/ul (0.83-4.51); Absolute Neutrophil Count 5.6 X10^3/uL (2.0-7.7); Basophil# 0.07 X10^3/uL; Basophil% 0.7 % (0-1); Eosinophil# 0.37 X10^3/uL; Eosinophils% 3.8 % (0-5); Hematocrit 42.5 % (40-54); Hemoglobin 14.6 g/dl (13.0-16.5); Lymphocyte # 3.17 X10^3/ul (4.0); Lymphocyte % 32.2 % (19-41); Mean Corp Hgb Conc 34.4 g/gl (32-36); Mean Corpuscular Hgb 29.3 pg (27.0-32.0); Mean Corpuscular Volume 85.3 fL (80-94); Mean Platelet Vol. 10.1 fl (6.2-12.0); Monocyte# 0.69 X10^3/uL; Neutrophil # 5.55 X10^3/uL (2.7-7.7); Neutrophil % 56.2 % (47-70); Platelet Count 290 K/mm3 (150-450); RBC Distribution Width CV 12.5 % (11.6-14.6); RBC Distribution Width SD 38.7 fl (35.1-43.9); Red Blood Count 4.98 M/mm3 (4.6-6.2); White Blood Count 9.9 K/mm3 (4.4-11.0)
[2018-04-26 22:42] LABS: POSITIVE COUNT NO; POSITIVE DIFFERENTIAL NO; POSITIVE MORPHOLOGY NO
[2018-04-26 22:44] LABS: Anion Gap 8 (5-15); BUN 16 mg/dL (7-18); BUN/Creat Ratio 17.6 RATIO (10-20); Calcium,Total 9.3 mg/dL (8.5-10.1); Chloride 105 mmol/L (98-107); Creatinine, Serum 0.91 mg/dL (0.70-1.30); EST Glomerular Filtration Rate 98 mL/min (>60); Est Glom Filt Rate - Afr Amer 118 mL/min (>60); Estimated Creatinine Clearance 114.93 ml/min; Glucose 84 mg/dL (74-106); Sodium Level 140 mmol/L (136-145)
[2018-04-26 22:49] LABS: D-Dimer Quantitative (DVT/PE) 0.38 FEU/ug/m (0.27-0.49)
--- NOTE | 2018-04-26 23:05 | ED.VISSUMM ---
- ER Visit Summary Date of Service: 04/26/18 Chief Complaint: [Chest pain] History of Present Illness: The patient is a 38 M [presents the emergency department complaint of chest discomfort that started this evening. Patient states that he was at the store walking around when he developed sudden onset of a sharp stabbing very localized pain in his left chest that lasted about 20-30 seconds and then resolved. Minutes later he had a second episode and he became diaphoretic. Patient denied any shortness of breath with it and he denied any radiation of the pain. Patient is never had pain quite like this before. Patient currently wearing a cast on his right leg for foot fracture that he sustained a couple weeks ago. Patient tells me that he does have a history of high cholesterol, hypertension, history of DVT, and history of a foot fracture. Patient states that he thinks his dad of a blood clot or possibly a heart attack in his 40s.] Physical Examination: [HEENT-PERRLA, EOMI. Cranial nerves II through XII grossly intact. TMs clear. Mucous membranes moist. No adenopathy. Cardiovascular-regular rate and rhythm without murmur or ectopy Lungs-clear to auscultation, chest wall stable without crepitus or subcu emphysema Abdomen-normoactive bowel sounds, soft, nontender, no rebound or rigidity, no peritoneal signs. Extremities-intact ?4, normal range of motion, normal pulses. Patient does have a short leg cast on the right leg and foot. Normal cap refill. No significant edema noted. Test Results: [EKG obtained on arrival shows sinus rhythm with a ventricular rate of 77 bpm with no acute ST segment changes. CBC with differential was normal. Chemistries were normal. Troponin was less than 0.015. D-dimer is normal at 0.38. Chest x-ray was normal.] Emergency Department Course and Treatment: [Patient received aspirin on arrival the emergency department] Treatment Plan: [Patient will be discharged home as at this point his chest pain is very atypical and I do not believe this to be cardiac in origin.] Disposition: [Discharged home stable condition] Impression: [Atypical chest pain-resolved] This note was generated with K[employer] dictation software. It may contain incorrect words, spelling, and punctuation that were not noted in review of the chart prior to signing ED Disposition - Plan for ED Patient: Chief Complaint: Chest Pain Referrals: Yousuf Gillespie MD [Primary Care Provider] -
--- NOTE | 2018-04-26 23:09 | ED.DCSUM_ITS ---
- ER Visit Summary Date of Service: 04/26/18 Chief Complaint: [Chest pain] History of Present Illness: The patient is a 38 M [presents the emergency department complaint of chest discomfort that started this evening. Patient states that he was at the store walking around when he developed sudden onset of a sharp stabbing very localized pain in his left chest that lasted about 20- 30 seconds and then resolved. Minutes later he had a second episode and he became diaphoretic. Patient denied any shortness of breath with it and he denied any radiation of the pain. Patient is never had pain quite like this before. Patient currently wearing a cast on his right leg for foot fracture that he sustained a couple weeks ago. Patient tells me that he does have a history of high cholesterol, hypertension, history of DVT, and history of a foot fracture. Patient states that he thinks his dad of a blood clot or possibly a heart attack in his 40s.] Physical Examination: [HEENT-PERRLA, EOMI. Cranial nerves II through XII grossly intact. TMs clear. Mucous membranes moist. No adenopathy. Cardiovascular-regular rate and rhythm without murmur or ectopy Lungs-clear to auscultation, chest wall stable without crepitus or subcu emphysema Abdomen-normoactive bowel sounds, soft, nontender, no rebound or rigidity, no peritoneal signs. Extremities-intact ?4, normal range of motion, normal pulses. Patient does have a short leg cast on the right leg and foot. Normal cap refill. No significant edema noted. Test Results: [EKG obtained on arrival shows sinus rhythm with a ventricular rate of 77 bpm with no acute ST segment changes. CBC with differential was normal. Chemistries were normal. Troponin was less than 0.015. D-dimer is normal at 0.38. Chest x-ray was normal.] Emergency Department Course and Treatment: [Patient received aspirin on arrival the emergency department] Treatment Plan: [Patient will be discharged home as at this point his chest pain is very atypical and I do not believe this to be cardiac in origin.] Disposition: [Discharged home stable condition] Impression: [Atypical chest pain-resolved] This note was generated with Graze dictation software. It may contain incorrect words, spelling, and punctuation that were not noted in review of the chart prior to signing ED Disposition - Plan for ED Patient: Chief Complaint: Chest Pain Referrals: Yousuf Gillespie MD [Primary Care Provider] -
--- NOTE | 2018-04-26 23:09 | ED.DEP ---
ED Disposition - Plan for ED Patient: Chief Complaint: Chest Pain Instructions: ED Chest Pain Atypical Unkn Cause Referrals: Yousuf Gillespie MD [Primary Care Provider] - 3-5 Days
[2018-04-26 23:23] VITALS: BP 133/95; PULSE 79; RESP 19; O2SAT 96
== END 2018-04-26 23:24 | disposition home or self-care (01) ==
PROVIDERS: Emergency Provider Emergency Medicine; Family Provider Family Medicine; PCP Family Medicine
DX: R07.89 Other chest pain (principal); E78.00 Pure hypercholesterolemia, unspecified; I10 Essential (primary) hypertension; F12.90 Cannabis use, unspecified, uncomplicated; Z86.718 Personal history of other venous thrombosis and embolism; Z79.82 Long term (current) use of aspirin; Z79.899 Other long term (current) drug therapy; Z72.0 Tobacco use
CPT/HCPCS: 71045; 80048; 84484; 85025; 85379; 93005; 96360; 99285; J7030; A4216

== ENCOUNTER 2018-05-11 05:40 | Emergency (ER) | payer MEDICAID, SELFPAY ==
[2018-05-11 05:41] VITALS: BP 152/106; PULSE 96; RESP 20; TEMP 36.8; O2SAT 100; BMI 33.5
--- NOTE | 2018-05-11 05:45 | ED.VIS.GEN ---
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 This morning he got up and prior to putting his boot on, put his left foot down and it slipped out from underneath of him, and in falling and catching himself, landed with his right foot plantar surface down but very hard on a hard floor, significantly intensifying pain in the area of his fracture. He has been in so much pain that he was vomiting and felt unsafe to drive here so he presents by EMS. He has taken nothing for the pain so far. - Past Medical History (1) Anxiety and depression Status: Chronic (2) GERD (gastroesophageal reflux disease) Status: Chronic (3) HLD (hyperlipidemia) Status: Chronic (4) HTN (hypertension) Status: Chronic (5) Insomnia Status: Chronic (6) Migraine Status: Chronic (7) GUSTAVO (obstructive sleep apnea) Status: Chronic (8) PTSD (post-traumatic stress disorder) Status: Chronic Past Medical History - Allergies and Home Meds Allergies/Adverse Reactions: Allergies latex Allergy (Verified 05/11/18 05:41) Other meloxicam Allergy (Verified 05/11/18 05:41) Other Primary Care Physician: Madeline Weiss DPM [STAFF PHYSICIAN] - (call for appt this or early next week) Yousuf Gillespie MD [Primary Care Provider] - Surgical History: - - Left hip surgery with pin x 2 secondary to defect, cholecystectomy. Smoking Status: Never smoker - Family History Maternal Family History: Reports: - - Patient notes a maternal family history of heart disease. Paternal Family History: Reports: - - Patient notes a paternal family history of [place], heart disease in his father with secondary to fatal [place] at age 40 in addition to blood clots in his father including PE. Review of Systems General: Denies: Chills, Fever Gastrointestinal: Reports: Nausea, Vomiting. Denies: Abdominal pain Musculoskeletal: Reports: Extremity Pain - Right foot only Neurological: Reports: Parasthesia. Denies: Headache, Weakness Physical Exam Vital Signs/Narrative: Vital Signs Temp Pulse Resp BP Pulse Ox 05/11/18 05:41 98.2 F 96 20 H 152/106 H 100 Inital Vital Signs reviewed: Yes General: Well nourished, Well developed Head: Normocephalic, Atraumatic Respiratory: No distress Extremities: Tenderness - very tender right lateral midfoot; limited due to amount of pain. no skin openings or bleeding. toes NT. ankle malleoli NT. Skin: Normal color, No rash Neurological: Alert, Oriented x3, Cranial nerves II-XII grossly intact, Normal Strength, Parasthesia - distallly all 4 exts Psychological: - - anxious Diagnostic/Tx/Re-eval Clinical Impression(s) from Imaging Studies Foot X-Ray 05/11/18 05:50 IMPRESSION: Increasing conspicuity of previously described fifth metatarsal fracture. No new osseous injuries are seen. Electronically Signed: Eulogio Pickett MD at 6:20 EDT Tel , Service support , - Medical Decision Making X-rays were repeated, his last x-rays were almost 1 month ago, showing the initial injury. It was read then as a stress fracture, although by mechanism he did have an acute injury. Now the fracture line extends through the entire fifth metatarsal, whereas before it was not. However according to the radiology report it does not appear to be acute, and probably was like that prior to his acute injury today. I suspect he is just having acute pain because of blunt trauma to the fracture site. He was initially given morphine 4 mg subcutaneous, he states it did not do anything. He is in no distress but we will give him another dose in addition to the Zofran that he already had, and an ice pack, he is advised to ice and elevate aggressively today to minimize the throbbing. He will follow-up with podiatry this week. ED Disposition - Plan for ED Patient: Disposition: Home or Assisted Living Chief Complaint: Lower Extremity Injury Diagnosis: Closed nondisplaced fracture of fifth right metatarsal bone Instructions: ED Fx Foot Referrals: Yousuf Gillespie MD [Primary Care Provider] - Madeline Weiss DPM [STAFF PHYSICIAN] - (call for appt this or early next week)
--- NOTE | 2018-05-11 05:50 | RAD_ITS ---
STUDY: X-RAY - RIGHT FOOT CLINICAL: Male, 38 years old. PATIENT SLIPPED AND HURT HIS FOOT POP, CURRENT FX OF RIGHT FOOT FROM 04/14/18 CURRENTLY IN WALKING BOOT TECHNIQUE: 3 view(s) of the foot. COMPARISON: 04/14/2018 FINDINGS: Normal talus, calcaneus, and tarsal bones. Normal visualized subtalar, talonavicular, calcaneocuboid, tarsal and tarsometatarsal articulations. Previously described fracture of the midportion of the fifth metatarsal has become more conspicuous. Normal metatarsophalangeal joint of the great toe. Normal tibial and fibular sesamoid bones. Normal interphalangeal joint of the great toe. Normal phalanges of the great toe. Normal second through fifth metatarsophalangeal joints. Normal interphalangeal joints and phalanges of the lesser toes. The soft tissue structures are unremarkable. RAD/Foot min 3 Views IMPRESSION: Increasing conspicuity of previously described fifth metatarsal fracture. No new osseous injuries are seen. Electronically Signed: Eulogio Pickett MD at 6:20 EDT Tel , Service support ,
--- NOTE | 2018-05-11 05:50 | ED.DCSUM_ITS ---
History of Present Illness Chief Complaint: Lower Extremity Injury Informant: Patient Onset: Today - 1-2 hrs [employer] Context: Sudden Onset Timing: Continuous Quality: pain Location: right midfoot Current Severity: Severe Maximum Severity: Severe Worsened by: movement, palpation Relieved by: nothing Associated Symptoms: numbness in distal extremities x 4 since hyperventilating from pain, n/v Narrative: About 11 days ago, patient sustained a closed fracture to his right lateral midfoot and has been in a walking boot since. This morning he got up and prior to putting his boot on, put his left foot down and it slipped out from underneath of him, and in falling and catching himself, landed with his right foot plantar surface down but very hard on a hard floor, significantly intensifying pain in the area of his fracture. He has been in so much pain that he was vomiting and felt unsafe to drive here so he presents by EMS. He has taken nothing for the pain so far. - Past Medical History (1) Anxiety and depression Status: Chronic (2) GERD (gastroesophageal reflux disease) Status: Chronic (3) HLD (hyperlipidemia) Status: Chronic (4) HTN (hypertension) Status: Chronic (5) Insomnia Status: Chronic (6) Migraine Status: Chronic (7) GUSTAVO (obstructive sleep apnea) Status: Chronic (8) PTSD (post-traumatic stress disorder) Status: Chronic Past Medical History - Allergies and Home Meds Allergies/Adverse Reactions: Allergies latex Allergy (Verified 05/11/18 05:41) Other meloxicam Allergy (Verified 05/11/18 05:41) Other Primary Care Physician: Madeline Weiss DPM [STAFF PHYSICIAN] - (call for appt this or early next week ) Yousuf Gillespie MD [Primary Care Provider] - Surgical History: - - Left hip surgery with pin x 2 secondary to defect, cholecystectomy. Smoking Status: Never smoker - Family History Maternal Family History: Reports: - - Patient notes a maternal family history of heart disease. Paternal Family History: Reports: - - Patient notes a paternal family history of WI, heart disease in his father with secondary to fatal WI at age 40 in addition to blood clots in his father including PE. Review of Systems General: Denies: Chills, Fever Gastrointestinal: Reports: Nausea, Vomiting. Denies: Abdominal pain Musculoskeletal: Reports: Extremity Pain - Right foot only Neurological: Reports: Parasthesia. Denies: Headache, Weakness Physical Exam Vital Signs/Narrative: Vital Signs Temp Pulse Resp BP Pulse Ox 05/11/18 05:41 98.2 F 96 20 H 152/106 H 100 Inital Vital Signs reviewed: Yes General: Well nourished, Well developed Head: Normocephalic, Atraumatic Respiratory: No distress Extremities: Tenderness - very tender right lateral midfoot; limited due to amount of pain. no skin openings or bleeding. toes NT. ankle malleoli NT. Skin: Normal color, No rash Neurological: Alert, Oriented x3, Cranial nerves II-XII grossly intact, Normal Strength, Parasthesia - distallly all 4 exts Psychological: - - anxious Diagnostic/Tx/Re-eval Clinical Impression(s) from Imaging Studies Foot X-Ray 05/11/18 05:50 IMPRESSION: Increasing conspicuity of previously described fifth metatarsal fracture. No new osseous injuries are seen. Electronically Signed: Eulogio Pickett MD at 6:20 EDT Tel , Service support , - Medical Decision Making X-rays were repeated, his last x-rays were almost 1 month ago, showing the initial injury. It was read then as a stress fracture, although by mechanism he did have an acute injury. Now the fracture line extends through the entire fifth metatarsal, whereas before it was not. However according to the radiology report it does not appear to be acute, and probably was like that prior to his acute injury today. I suspect he is just having acute pain because of blunt trauma to the fracture site. He was initially given morphine 4 mg subcutaneous, he states it did not do anything. He is in no distress but we will give him another dose in addition to the Zofran that he already had, and an ice pack, he is advised to ice and elevate aggressively today to minimize the throbbing. He will follow-up with podiatry this week. ED Disposition - Plan for ED Patient: Disposition: Home or Assisted Living Chief Complaint: Lower Extremity Injury Diagnosis: Closed nondisplaced fracture of fifth right metatarsal bone Instructions: ED Fx Foot Referrals: Youusf Gillespie MD [Primary Care Provider] - Madeline Weiss DPM [STAFF PHYSICIAN] - (call for appt this or early next week )
[2018-05-11] MEDS: Morphine 4 MG/ML Syringe SC (05:55)
[2018-05-11] MEDS: Ondansetron ODT 4 MG Tablet 8 MG PO (05:55)
[2018-05-11] MEDS: morphine 8 MG/ML Syringe 6 MG IM (07:16)
== END 2018-05-11 07:28 | disposition home or self-care (01) ==
PROVIDERS: Emergency Provider Emergency Medicine; Family Provider Family Medicine; PCP Family Medicine
DX: S92.354A Nondisplaced fracture of fifth metatarsal bone, right foot, initial encounter for closed fracture (principal); W01.0XXA Fall on same level from slipping, tripping and stumbling without subsequent striking against object, initial encounter; Y93.89 Activity, other specified; Y92.9 Unspecified place or not applicable; F32.9 Major depressive disorder, single episode, unspecified; F41.9 Anxiety disorder, unspecified; F43.12 Post-traumatic stress disorder, chronic; K21.9 Gastro-esophageal reflux disease without esophagitis; E78.5 Hyperlipidemia, unspecified; I10 Essential (primary) hypertension; Z79.82 Long term (current) use of aspirin; Z79.899 Other long term (current) drug therapy
CPT/HCPCS: 73630; 96372; 99284